=== PATIENT | female | born 1970 | race Caucasian/White ===

== ENCOUNTER → 2017-12-17 14:55 | Outpatient (CLI) | payer OTHER, SELFPAY ==
--- NOTE | 2017-12-17 14:58 | BI_ITS ---
MAMMOGRAPHY - BILATERAL SCREENING REASON FOR EXAM: Female, 47 years old. Routine annual screening examination. PERTINENT HISTORY: Grandmother with breast cancer. TECHNIQUE: Digital bilateral breast nidhi (3D mammographic acquisition) in the CC and MLO projections. 2-D mediolateral oblique (MLO) and craniocaudad (CC) views of both breasts were obtained. CAD: Full Field Digital Mammography with Computer Added Detection was performed. COMPARISON: Comparison is made with prior outside examination dated October 25, 2015. FINDINGS: Breast Composition: The breasts are heterogeneously dense, which may obscure small masses. There is a 1 cm x 1.2 cm well-defined nodule in the rectal alveolar region of the right breast. Correlation with ultrasound is recommended. No other significant abnormalities are identified. BI/SCREENING MAMM (CAD), BILAT IMPRESSION: 1 cm x 1.2 cm well-defined nodule in the retroareolar region of the right breast as described. Correlation with ultrasound is recommended. ASSESSMENT CATEGORY: BIRADS Category 0: Incomplete. Need additional imaging evaluation. A letter regarding these results will be sent to the patient by the facility within 30 days. Approximately 10% of breast cancers are not detected by mammography. A normal mammogram should not delay biopsy of a clinically suspicious abnormality. [id number] Electronically Signed: Sanford Ivey MD at 11:14 EDT Tel [phone], Service support ,
== END ==
PROVIDERS: Visit Provider Internal Medicine
DX: Z12.31 Encounter for screening mammogram for malignant neoplasm of breast (principal)
CPT/HCPCS: 77063; 77067

== ENCOUNTER → 2017-12-29 14:59 | Outpatient (CLI) | payer OTHER, SELFPAY ==
--- NOTE | 2017-12-29 15:00 | US_ITS ---
STUDY: ULTRASOUND BREAST - RIGHT REASON FOR EXAM: Female, 47 years old. Abnormal screening mammogram. TECHNIQUE: Axial and longitudinal images of the RIGHT breast were performed with a high resolution ultrasound transducer. COMPARISON: Comparison is made with prior mammogram dated December 17, 2017. FINDINGS: RIGHT Breast: Multiple cysts are seen. The largest measures 1.[address] by 0.4 cm. This is in the retroareolar region of the breast corresponding to the mammographic abnormality. There is also evidence of dilated subareolar ducts. Routine mammographic follow-up is recommended. US/Breast Limited Unilateral IMPRESSION: Retroareolar cysts. Routine mammographic follow-up is recommended. ASSESSMENT CATEGORY: BIRADS Category 2: Benign. A letter regarding these results will be sent to the patient by the facility within 30 days. Electronically Signed: Sanford Ivey MD at 15:58 EDT Tel [phone], Service support ,
== END ==
PROVIDERS: Family Provider Internal Medicine; PCP Internal Medicine; Visit Provider Internal Medicine
DX: N60.01 Solitary cyst of right breast (principal)
CPT/HCPCS: 76642

== ENCOUNTER 2018-01-05 12:47 | Emergency (ER) | payer OTHER, SELFPAY ==
[2018-01-05 12:47] VITALS: BP 133/76; PULSE 91; RESP 15; TEMP 35.9; O2SAT 100; BMI 24.4
[2018-01-05 13:08] VITALS: BP 142/64; PULSE 78; RESP 14; O2SAT 100
--- NOTE | 2018-01-05 13:23 | EKG12_ITS ---
Test Reason : DIZZINESS Blood Pressure : / mmHG Vent. Rate : 061 BPM Atrial Rate : 061 BPM P-R Int : 154 ms QRS Dur : 080 ms QT Int : 416 ms P-R-T Axes : 063 063 052 degrees QTc Int : 418 ms Normal sinus rhythm with sinus arrhythmia Normal ECG Confirmed by YULIYA PEREZ, KRISSY ([id number]), editor book HUNTER CHOI ([id number]) on 01/09/2018 10:23:11 AM Referred By: Florencio Robles Confirmed By:KRISSY DWYER MD
--- NOTE | 2018-01-05 13:23 | CT_ITS ---
STUDY: CT BRAIN WITHOUT CONTRAST REASON FOR EXAM: Female, 47 years old. Dizziness. Contusion. RADIATION DOSAGE (If Supplied By Facility): CTDIvol = ( 44.99 ) mGy, DLP = ( 745.49 ) mGycm TECHNIQUE: Transaxial CT imaging of the brain was performed without administration of intravenous contrast material. Individualized dose optimization techniques were used for this CT. COMPARISON: None. FINDINGS: Normal soft tissue structures. Normal calvarium. Normal size ventricles and extra-axial spaces for the patient's age. Normal white matter tracts of the cerebral hemispheres. Normal basal ganglia and thalami. Normal brainstem. Normal cerebellum. There is no intracranial hemorrhage. There are no findings of an acute ischemic infarction. Normal visualized paranasal sinuses. CT/Brain/Head without Contrast IMPRESSION: Normal unenhanced CT scan of the brain. Electronically Signed: Sanford Ivey MD at 14:19 EDT Tel [phone], Service support ,
--- NOTE | 2018-01-05 13:46 | PCA ---
NO OLD EKG
[2018-01-05 13:47] LABS: Absolute Lymphocyte Count 2.05 X10^3/ul (0.83-4.51); Absolute Neutrophil Count 3.5 X10^3/uL (2.0-7.7); Basophil# 0.04 X10^3/uL; Basophil% 0.6 % (0-1); Eosinophil# 0.16 X10^3/uL; Eosinophils% 2.6 % (0-5); Hematocrit 41.6 % (37-47); Hemoglobin 13.9 g/dl (12.0-15.0); Lymphocyte # 2.05 X10^3/ul (4.0); Lymphocyte % 33.2 % (19-41); Mean Corp Hgb Conc 33.4 g/gl (32-36); Mean Corpuscular Hgb 30.4 pg (27.0-32.0); Mean Platelet Vol. 9.6 fl (6.2-12.0); Monocyte# 0.44 X10^3/uL; Monocyte% 7.1 % (0-10); Neutrophil # 3.49 X10^3/uL (2.7-7.7); Neutrophil % 56.5 % (47-70); Platelet Count 252 K/mm3 (150-450); RBC Distribution Width CV 12.9 % (11.6-14.6); Red Blood Count 4.57 M/mm3 (4.2-5.4); White Blood Count 6.2 K/mm3 (4.4-11.0)
[2018-01-05 13:49] LABS: POSITIVE COUNT NO; POSITIVE DIFFERENTIAL NO; POSITIVE MORPHOLOGY NO
[2018-01-05 13:55] LABS: Anion Gap 11 (5-15); BUN 15 mg/dL (7-18); BUN/Creat Ratio 14.2 RATIO (10-20); Calcium,Total 8.7 mg/dL (8.5-10.1); Chloride 104 mmol/L (98-107); Creatinine, Serum 1.06 mg/dL (0.55-1.02); EST Glomerular Filtration Rate 59 mL/min (>60); Est Glom Filt Rate - Afr Amer 71 mL/min (>60); Estimated Creatinine Clearance 64.76 ml/min; Glucose 82 mg/dL (74-106); Potassium 3.9 mmol/L (3.5-5.1); Sodium Level 141 mmol/L (136-145)
--- NOTE | 2018-01-05 15:12 | ED.VISSUMM ---
- ER Visit Summary Date of Service: 01/05/18 Chief Complaint: Dizziness History of Present Illness: The patient is a 47 F c/o of room spinning dizziness. Prior history of vertigo. No change with head motion. Feels like she might pass out. Sometimes feels lightheaded. No melena. No fever. Positive nausea. No recent head trauma. On no blood thinners. No trouble moving her arms or legs. No numbness. No visual change or change in her speech. This is been going on for approximately a week. Physical Examination: Well-appearing middle-age female. Vital signs are stable afebrile. Pulse ox are percent on room air no signs of hypoxia. H EENT exam unremarkable. Neck nontender no lymphadenopathy. Lungs clear to auscultation bilaterally. Heart regular rate and rhythm no murmur. Abdomen soft nontender. Normal bowel sounds no peritoneal signs. Moving all 4 extremities. Neurovascular intact. Calves nontender, no edema no cords. Neurologically awake alert no focal motor or sensory deficits. NIH is 0. Hdfk-cd-potk fingertip to nose within normal limits. 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 Bilateral dorsi plantar flexion. Back exam normal. Skin exam normal. Test Results: CBC normal. BMP normal. EKG sinus rhythm rate is [address] brain done without contrast no acute abnormality reviewed by me read by the radiologist. Emergency Department Course and Treatment: The exam doing well at 1515 Treatment Plan: Discharge to home. Follow-up with her primary care physician. Currently this does not appear to be vertigo. I do not think she needs any treatment. Disposition: dc Impression: Acute dizziness of uncertain etiology This note was generated with [employer] dictation software. It may contain incorrect words, spelling, and punctuation that were not noted in review of the chart prior to signing ED Disposition - Plan for ED Patient: Chief Complaint: Dizziness Referrals: Florencio Robles MD [Primary Care Provider] -
--- NOTE | 2018-01-05 15:16 | ED.DCSUM_ITS ---
- ER Visit Summary Date of Service: 01/05/18 Chief Complaint: Dizziness History of Present Illness: The patient is a 47 F c/o of room spinning dizziness. Prior history of vertigo. No change with head motion. Feels like she might pass out. Sometimes feels lightheaded. No melena. No fever. Positive nausea. No recent head trauma. On no blood thinners. No trouble moving her arms or legs. No numbness. No visual change or change in her speech. This is been going on for approximately a week. Physical Examination: Well-appearing middle-age female. Vital signs are stable afebrile. Pulse ox are percent on room air no signs of hypoxia. H EENT exam unremarkable. Neck nontender no lymphadenopathy. Lungs clear to auscultation bilaterally. Heart regular rate and rhythm no murmur. Abdomen soft nontender. Normal bowel sounds no peritoneal signs. Moving all 4 extremities. Neurovascular intact. Calves nontender, no edema no cords. Neurologically awake alert no focal motor or sensory deficits. NIH is 0. Vsdw-ec-xopb fingertip to nose within normal limits. 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 Bilateral dorsi plantar flexion. Back exam normal. Skin exam normal. Test Results: CBC normal. BMP normal. EKG sinus rhythm rate is [address] brain done without contrast no acute abnormality reviewed by me read by the radiologist. Emergency Department Course and Treatment: The exam doing well at 1515 Treatment Plan: Discharge to home. Follow-up with her primary care physician. Currently this does not appear to be vertigo. I do not think she needs any treatment. Disposition: dc Impression: Acute dizziness of uncertain etiology This note was generated with [employer] dictation software. It may contain incorrect words, spelling, and punctuation that were not noted in review of the chart prior to signing ED Disposition - Plan for ED Patient: Chief Complaint: Dizziness Referrals: Florencio Robles MD [Primary Care Provider] -
--- NOTE | 2018-01-05 15:16 | ED.DEP ---
ED Disposition - Plan for ED Patient: Disposition: Home or Assisted Living Chief Complaint: Dizziness Instructions: ED Dizziness [facility] Referrals: Florencio Robles MD [Primary Care Provider] - 3-5 Days if not improving Additional Instructions: Call and follow-up your primary care physician is not improving.
[2018-01-05 15:22] VITALS: BP 118/71; PULSE 55; RESP 16; O2SAT 99
== END 2018-01-05 15:30 | disposition home or self-care (01) ==
PROVIDERS: Emergency Provider Emergency Medicine; Family Provider Internal Medicine; PCP Internal Medicine
DX: R42 Dizziness and giddiness (principal); R11.0 Nausea
CPT/HCPCS: 70450; 80048; 85025; 93005; 99283; A4216

== ENCOUNTER → 2019-06-01 15:21 | Outpatient (CLI) | payer OTHER, SELFPAY ==
--- NOTE | 2019-06-01 15:24 | BI_ITS ---
MAMMOGRAPHY - BILATERAL SCREENING REASON FOR EXAM: Female, 48 years old. Routine annual screening examination. PERTINENT HISTORY: Grandmother with breast cancer. Aunts with breast cancer. TECHNIQUE: Digital bilateral breast consuelo (3D mammographic acquisition) in the CC and MLO projections. 2-D mediolateral oblique (MLO) and craniocaudad (CC) views of both breasts were obtained. CAD: Full Field Digital Mammography with Computer Added Detection was performed. COMPARISON: Comparison is made with prior study dated December 17, 2017. FINDINGS: Breast Composition: The breasts are heterogeneously dense, which may obscure small masses. There are no dominant masses or suspicious calcifications. Stable 1 cm well-defined retroareolar nodule in the right breast. On prior sonogram, this was demonstrated to be a cyst. No other significant abnormalities are identified. There has been no significant change since the prior study. BI/SCREEN MAMM (CAD) W/CONSUELO BILAT IMPRESSION: Stable bilateral screening mammogram. Yearly follow-up mammogram recommended. (A) ASSESSMENT CATEGORY: BIRADS Category 2: Benign. A letter regarding these results will be sent to the patient by the facility within 30 days. Approximately 10% of breast cancers are not detected by mammography. A normal mammogram should not delay biopsy of a clinically suspicious abnormality. [id number] Electronically Signed: Sanford Ivey, at 8:41 EDT , Service support ,
== END ==
PROVIDERS: Family Provider Internal Medicine; PCP Internal Medicine; Referring Provider Nurse Practitioner; Visit Provider Nurse Practitioner
DX: Z12.31 Encounter for screening mammogram for malignant neoplasm of breast (principal)
CPT/HCPCS: 77063; 77067

== ENCOUNTER → 2020-11-20 15:28 | Outpatient (CLI) | payer OTHER, SELFPAY ==
--- NOTE | 2020-11-20 15:31 | BI_ITS ---
MAMMOGRAPHY - BILATERAL SCREENING REASON FOR EXAM: Female, 50 years old. Routine annual screening examination. PERTINENT HISTORY: Grandmother with breast cancer. Aunts with breast cancer. TECHNIQUE: Digital bilateral breast consuelo (3D mammographic acquisition) in the CC and MLO projections. 2-D mediolateral oblique (MLO) and craniocaudad (CC) views of both breasts were obtained. CAD: Full Field Digital Mammography with Computer Added Detection was performed. COMPARISON: Comparison is made with prior study 06/01/2019 and 12/17/2017. FINDINGS: Breast Composition: The breasts are heterogeneously dense, which may obscure small masses. There are no dominant masses or suspicious calcifications. A tissue clip marker is seen in the inferior medial aspect of the left breast. The previously seen 1 cm well-defined retroareolar nodule in the right breast is not seen at this time. No other significant abnormalities are identified. BI/SCRN MAMM (CAD)W/CONSUELO BILAT IMPRESSION: Stable bilateral screening mammogram. Yearly follow-up mammogram recommended. (A) ASSESSMENT CATEGORY: BIRADS Category 2: Benign. A letter regarding these results will be sent to the patient by the facility within 30 days. Approximately 10% of breast cancers are not detected by mammography. A normal mammogram should not delay biopsy of a clinically suspicious abnormality. [id number] Electronically Signed: Sanford Ivey MD at 13:45 EDT , Service support ,
== END ==
PROVIDERS: PCP Internal Medicine; Referring Provider Internal Medicine; Visit Provider Internal Medicine
DX: Z12.31 Encounter for screening mammogram for malignant neoplasm of breast (principal)
CPT/HCPCS: 77063; 77067

== ENCOUNTER → 2022-01-22 | Outpatient (CLI) | payer OTHER, SELFPAY ==
--- NOTE | 2022-01-22 15:50 | RAD_ITS ---
HISTORY: CHRONIC LOW BACK PAIN. TECHNIQUE: XR Spine Lumbar 2 or 3 Views. COMPARISON: None. FINDINGS: VERTEBRAE: Vertebral body heights preserved. Degenerative changes of the posterior elements. ALIGNMENT: 2 mm anterolisthesis of L4-5. INTERVERTEBRAL DISCS: Disc spaces maintained. SOFT TISSUES: Gaseous and stool distention of the colon. RAD/Lumbar Spine 2 or 3 Views IMPRESSION: No acute fracture or dislocation identified in the lumbar spine. Minimal anterolisthesis of L4-5. Mild degenerative change. Electronically Signed: Coby Elmore MD at 16:06 EDT ,
== END | disposition home or self-care (01) ==
PROVIDERS: PCP Internal Medicine; Referring Provider Internal Medicine; Visit Provider Internal Medicine
DX: M54.50 Low back pain, unspecified (principal); G89.29 Other chronic pain
CPT/HCPCS: 72100

== ENCOUNTER → 2022-02-06 | Outpatient (CLI) | payer OTHER, SELFPAY ==
--- NOTE | 2022-02-06 15:27 | BI_ITS ---
MAMMOGRAPHY - BILATERAL SCREENING REASON FOR EXAM: Female, 51 years old. Routine annual screening examination. PERTINENT HISTORY: Grandmother with breast cancer. Aunts with breast cancer. TECHNIQUE: Digital bilateral breast consuelo (3D mammographic acquisition) in the CC and MLO projections. 2-D mediolateral oblique (MLO) and craniocaudad (CC) views of both breasts were obtained. CAD: Full Field Digital Mammography with Computer Added Detection was performed. COMPARISON: Comparison mammograms from 11/20/2020, 06/01/2019, 12/17/2017. Right breast ultrasound from 12/17/2017. FINDINGS: Breast Composition: The breasts are heterogeneously dense, which may obscure small masses. There are no dominant masses or suspicious calcifications. There are a few small round right retroareolar masses seen best on tomosynthesis that are stable since 2018 and was previously characterized as a cluster of benign cysts. Stable biopsy marker in the left breast. No other significant abnormalities are identified. There has been no significant change since the prior study. BI/SCRN MAMM (CAD)W/CONSUELO BILAT IMPRESSION: Stable bilateral screening mammogram. Yearly follow-up mammogram recommended. (A) ASSESSMENT CATEGORY: BIRADS Category 2: Benign. A letter regarding these results will be sent to the patient by the facility within 30 days. Approximately 10% of breast cancers are not detected by mammography. A normal mammogram should not delay biopsy of a clinically suspicious abnormality. [id number] Electronically Signed: Jayme Adam, at 13:12 EDT ,
== END | disposition home or self-care (01) ==
LOC: OPBI 15:25
PROVIDERS: PCP Internal Medicine; Visit Provider Internal Medicine
DX: Z12.31 Encounter for screening mammogram for malignant neoplasm of breast (principal)
CPT/HCPCS: 77063; 77067

== ENCOUNTER 2022-02-11 15:30 | Outpatient (RCR) | payer OTHER, SELFPAY ==
--- NOTE | 2022-01-28 17:58 | HP.PTEVAL ---
Patient's Visit Information GEORGIA KHAN is a 51 year old F referred to Physical Therapy by Dr. Sharon Bryant MD with a diagnosis of LBP. Date of Evaluation: 01/28/22 Physical Therapist: Neftaly Carter, PT, ATC - Visit Plan Frequency: 2x /Week Duration: 2 Weeks Plan: Issue and instruct pt on HEP of core strengthening over 4 visits - Subjective Pt reports she has had LBP for approximately 2 years. Pt reports she is not sure what is causing this, but notes she does exercise a lot and believes this may have something to do with it. Pt also notes intermittent B LE tingling that she has just started to notice. Pt reports she also has been performing the upward dogg move which seems to take her pain away. Pt reports she has had an x-ray, but has not been given the results at this time. Pt reports she tends to notice the pain more if she walks a lot, and if she attempts to negotiate stairs. Pt reports sleep difficulty at this time secondary to LBP. Pt reports no pain while at rest ,4 /10 pain at worst (while laying in bed) - Pain LBP Pain Intensity (Out of 10): 0 Pain Intensity Range: 4 - Objective Neuro: B LE sensation is WNL to light touch. B bicipital reflex= 2/3. ROM: Pt is minimally limited with extension. All other ranges are WNL. MMT: B LE's are rated at 5/5 throughout. repeated movements: RFIS increased LBP; SYBIL decreases pain - Balance/Special Test Scores Oswestry Low Back Score: 4 - Goals Goal 1:: Decrease LBP x 50% to aid with sleep Goal Time Frame: 2-4 Weeks Goal 2:: Decrease frequency and intensity of B LE radiculopathy x 50% to aid with IADL's Goal Time Frame: 2-4 Weeks Goal 3:: I with HEP Goal Time Frame: 2-4 Weeks - Rehabilitation Potential Physical Therapy Diagnosis: Pt has LBP, limited L/S ROM, and difficulty with sleep secondary to lumbar spine disc derangement. Rehabilitation Potential: Good - Anticipated Interventions Patient/Client Instruction: Educate patient on: Condition, Plan of Care For the Purpose of:: To improve self management Therapeutic Exercise to Include: Strength training, Body mechanics, Postural training, Dynamic Lumbar Stabilization For the Purpose of:: To decrease pain, To increase ROM, To improve muscle performance and motor function Thank you for the opportunity to evaluate your patient. For Medicare and Medicare HMO plans, please review the plan of care and approve it. It will need to be FAXED BACK to us at [phone] for Medicare purposes. For Medicare only, by signing this I certify the plan of care. Please let me know if there are questions or concerns regarding this plan of care. Physician Signature: Date:
--- NOTE | 2022-05-07 09:45 | HP.PT.NRP ---
GEORGIA KHAN was seen in my office for initial evaluation on 01/28/22. The following Plan of Care was established for this patient: Initial Frequency: 2x /Week Initial Duration: 2 Weeks Patient/Client Instruction: Educate patient on: Condition, Plan of Care For the Purpose of:: To improve self management Therapeutic Exercise to Include: Strength training, Body mechanics, Postural training, Dynamic Lumbar Stabilization For the Purpose of:: To decrease pain, To increase ROM, To improve muscle performance and motor function This patient was last seen in our office . Pertinent comments regarding their Physical therapy will appear below: Pt was treated for LBP for 2 PT visits through the date of 02/11/22. Pt has not returned through todays date and is discontinued at this time. At this point I will be discontinuing this patient from physical therapy. I would be happy to see this patient again in the future if found appropriate by the physician. Thank you! Neftaly Carter, PT, ATC Balance/Gait/Functional tests - Balance/Special Test Scores Oswestry Low Back Score: 4
== END 2022-02-11 19:00 | disposition home or self-care (01) ==
LOC: PT 15:30
PROVIDERS: PCP Internal Medicine; Referring Provider Internal Medicine; Visit Provider Internal Medicine
DX: M54.50 Low back pain, unspecified (principal); G89.29 Other chronic pain
CPT/HCPCS: 97110; 97161